=== PATIENT | female | born 1985 | race Caucasian/White ===

== ENCOUNTER 2022-11-15 19:37 | Outpatient (CLI) | payer MEDICAID, SELFPAY ==
[2022-11-15] VITALS (7 sets, daily range): BP systolic 113; BP diastolic 68; PULSE 59–68; TEMP 36.6; O2SAT 96–99; BMI 30.9
[2022-11-15 21:03] LABS: Bacteria 0 SEEN /hpf (None Seen); Mucous, Urine 0 SEEN /hpf (<or=2+)
[2022-11-15 21:04] LABS: Absolute Lymphocyte Count 2.19 X10^3/uL (0.83-4.51); Absolute Neutrophil Count 8.5 X10^3/uL (2.0-7.7); Basophil# 0.03 X10^3/uL; Basophil% 0.3 % (0-1); Eosinophil# 0.17 X10^3/uL; Eosinophils% 1.4 % (0-5); Hematocrit 34.6 % (37-47); Hemoglobin 11.9 g/dL (12.0-15.0); Lymphocyte # 2.19 X10^3/ul (0.83-4.51); Lymphocyte % 18.5 % (19-41); Mean Corp Hgb Conc 34.4 g/dL (32-36); Mean Corpuscular Hgb 30.4 pg (27.0-32.0); Mean Corpuscular Volume 88.3 fL (81-99); Monocyte# 0.74 X10^3/uL; Monocyte% 6.2 % (0-10); NRBC Flagged by Analyzer 0 % (0-5); Neutrophil # 8.51 X10^3/uL (2.7-7.7); Neutrophil % 71.7 % (47-70); Platelet Count 171 K/mm3 (150-450); RBC Distribution Width CV 13.2 % (11.6-14.6); RBC Distribution Width SD 42.5 fl (35.1-43.9); Red Blood Count 3.92 M/mm3 (4.2-5.4); White Blood Count 11.9 K/mm3 (4.4-11.0)
[2022-11-15 21:08] LABS: Color, Urine Straw (Yellow); Glucose, Dipstick Normal (Normal); Ketone-Dipstick Negative (Negative); Leukocyte Esterase-Dipstick 25 /ul (Negative); Nitrite-Dipstick Negative (Negative); Occult Blood-Urine Negative /ul (Negative); Protein-Dipstick Negative (Negative); Urine Bilirubin Dipstick Negative (Negative); Urine Clarity Clear (Clear); Urine Urobilinogen Normal (Normal)
[2022-11-15 21:37] LABS: Amphetamine Urine VISTA NEGATIVE (<1000 ng/mL); Barbiturate Urine VISTA NEGATIVE (< 200 ng/mL); Benzodiazepine Urine VISTA NEGATIVE (< 200 ng/mL); Cocaine Urine VISTA NEGATIVE (< 300 ng/mL); Ecstacy Urine VISTA NEGATIVE (< 500 ng/mL); Methadone Urine VISTA NEGATIVE (< 300 ng/mL); PCP Urine VISTA NEGATIVE (< 25 ng/mL); THC Urine VISTA NEGATIVE (< 50 ng/mL); Vista UDS pH Range 7
[2022-11-15 21:41] LABS: Red Blood Cells-Urine 0 SEEN /hpf (0-5); Squamous Epithelial Cells - UA 0-5 SEEN /hpf (5-10); White Blood Cells 0-5 SEEN /hpf (0-5)
[2022-11-15 21:53] LABS: Rubella IgG Reactive (Nonreactive); Syphilis Antibodies Non-reactive
--- NOTE | 2022-11-15 21:55 | OB.TRI.NOTE ---
HPI - General HPI Narrative ZAKIYA WHELAN, is a 37 F who presents with unwell feeling, intermittent numbness to right hand and right hip and left foot, currently not experiencing. [facility] test in April, but has not returned to any provider for OB care. DWIGHT per pt is 12/12/2021. has active movement, denies lof/ctx/vb. PFSH PFSH Allergy/AdvReac Type Severity Reaction Status Date / Time No Known Allergies Allergy Verified 11/15/22 22:35 OB Visit Details Medical History Medical History: Negative: Diabetes, Hypertension, Heart disease, Auto-immune disorder, Kidney disease/UTI, Neurologic/epilepsy, Psychiatric, Depression/ depression, Hepatitis/liver disease, Varicosities/phlebitis, Thyroid dysfunction, Trauma/domestic violence, History of blood transfusions, D (Rh) Sensitized, Pulmonary (e.g.,TB,Asthma), Seasonal allergies, Drug/latex allergies/reactions, Breast, Crayon Sawyer surgery, Operations/hospitalizations, Anesthetic complications, History of abnormal pap, Uterine anomaly/ana, Infertility, Anti-retroviral treatment, Relevant family history and Other ROS Review of Systems ROS Unobtainable: due to encephalopathy Constitutional Constitutional: Reports headache(s) Cardiovascular Cardiovascular: Reports systems reviewed and no addt'l complaints, except as documented Respiratory/Chest Respiratory/Chest: Reports systems reviewed and no addt'l complaints, except as documented Gastrointestinal Gastrointestinal: Reports systems reviewed and no addt'l complaints, except as documented Genitourinary Genitourinary: Reports systems reviewed and no addt'l complaints, except as documented Musculoskeletal Musculoskeletal: Reports systems reviewed and no addt'l complaints, except as documented Integumentary Integumentary: Reports systems reviewed and no addt'l complaints, except as documented Neurologic Neurologic: Reports systems reviewed and no addt'l complaints, except as documented, loss of vision and numbness Psychiatric Psychiatric: Reports systems reviewed and no addt'l complaints, except as documented Endocrine Endocrinology: Reports systems reviewed and no addt'l complaints, except as documented Hematologic/Lymphatic Hematologic/Lymphatic: Reports systems reviewed and no addt'l complaints, except as documented Allergic/Immunologic Allergic/Immunologic: Reports systems reviewed and no addt'l complaints, except as documented Physical Exam Const alert, oriented x3 and no apparent distress General Appearance: cooperative HEENT normocephalic Head and Scalp: normal to inspection Eyes PERRL General Eye: normal appearance of both eyes Visual Acuity: acuity normal Visual Field: No peripheral vision loss and No central vision loss Alignment: alignment normal Eyelid: eyelids normal Conjunctiva: conjunctiva normal Sclera: sclera normal Cornea: cornea normal Pupil: PERRL Neck full ROM Lymph Lymphatic: no lymphadenopathy noted Chest inspection of chest normal Resp normal respiratory effort, normal air movement, no retractions and no use of accessory muscles Effort and Inspection: able to speak in complete sentences Cardio regular rate GI normal to inspection, nondistended, normoactive bowel sounds GI Narrative: fundus appropriate for GA Manual OB Exam: estimated gestational size appropriate Uterus Palpation: Negative for uterus tender Psych Attitude: calm NST FHR Rate Baby A Baseline: 130-140 Variability:: Moderate Accelerations:: 15 x 15 Decelerations:: None NST Reactive:: Yes FHR Category:: Category I Assessment & Plan (1) : PLAN: Plan pt seen and evaluated by provider. in no active distress. reactive NST. intermittent numbness/visual white outs, currently without any symptoms.VSS and lab work reassuring -plan to d/c home and will establish care in community. -recommended once established care to obtain neuro consult if symptoms are not improved. Charges/Coding Visit Charges Office Visits / Consults: [id number] OP Consult L2 Procedures Urinary/Genital [id number]: [id number] non-stress test Interp
[2022-11-15 22:15] LABS: Chlamydia Trachomatis by PCR Negative (Negative); Neisserai gonorrhoeae by PCR Negative (Negative); Probe Check PASS; Sample Adequacy Control PASS; Specimen Processing Control PASS
[2022-11-15 22:24] LABS: HIV - WCH Non-Reactive (Nonreactive); Hepatitis B Surface Antigen Non-Reactive (Nonreactive); Hepatitis C Antibody Non-Reactive (Nonreactive)
[2022-11-15 23:03] LABS: Group B Strep DNA By PCR Negative (Negative); Internal Control PASS; Probe Check PASS; Specimen Processing Control PASS
== END 2022-11-15 23:31 | disposition home or self-care (01) ==
LOC: WPOUT 19:45 → WP 19:46
PROVIDERS: Visit Provider Registered Nurse
DX: O26.899 Other specified pregnancy related conditions, unspecified trimester (principal); R20.0 Anesthesia of skin; Z3A.00 Weeks of gestation of pregnancy not specified
CPT/HCPCS: 36415; 59025; 59050; 80307; 81001; 85025; 86703; 86762; 86780; 86803; 86850; 86900; 86901; 87081; 87340; 87491; 87591; 87653; 99218; G0378

== ENCOUNTER 2023-01-05 19:15 | Inpatient (IN) | payer MEDICAID, SELFPAY ==
[2023-01-05] VITALS (7 sets, daily range): BP systolic 111–124; BP diastolic 73–78; PULSE 60–81; TEMP 36.1–36.2; O2SAT 96–99; BMI 31.7
--- NOTE | 2023-01-05 19:27 | PCM.HP.OB ---
HPI - General General Date of Admission: 01/05/23 HPI Narrative ZAKIYA WHELAN, is a 37 F at 39.2 weeks gestation who presents for scheduled induction of labor for AMA and late/poor care. Patient seen only twice in office during . Maternal Data Information DWIGHT Calculator Estimated Delivery Date Method Current WG Current Estimate 01/10/23 Manual 39w 2d PFSH PFSH Home Medications + Iron 1 tab DAILY 01/05/23 [History Last Taken 01/04/23 10:00 1 tab] Allergy/AdvReac Type Severity Reaction Status Date / Time Latex, Natural Rubber Allergy Rash Verified 01/05/23 20:33 Surgical History (Updated 01/05/23 @ 20:32 by Christelle Truong) History of surgery Social History Smoking Status: Former smoker History Elective abortions Hx Para 0 Spontaneous abortions Hx # Term Pregnancies Ectopic pregnancies Hx # Pregnancies Multiple births # of living children NST FHR Rate Baby A Baseline: 135 Variability:: Moderate Accelerations:: 15 x 15 Decelerations:: None NST Reactive:: Yes FHR Category:: Category I Uterine Activity:: None per TOCO ROS Eyes Eyes: Denies blurry vision, change in vision or spots in vision ENT HEENT: Denies dizziness or headache(s) Cardiovascular Cardiovascular: Denies abdominal pain, chest pain or dyspnea Respiratory/Chest Respiratory/Chest: Denies cough, dyspnea, shortness of breath at rest or shortness of breath with exertion Gastrointestinal Gastrointestinal: Denies abdominal pain, diarrhea or vomiting Genitourinary Genitourinary: Denies change in urinary stream, difficulty urinating or dysuria Musculoskeletal Musculoskeletal: Reports none Integumentary Integumentary: Denies rash Neurologic Neurologic: Denies dizziness, headache(s), memory loss or weakness Psychiatric Psychiatric: Reports none Physical Exam Const alert, oriented x3 and no apparent distress General Appearance: cooperative Orientation / Consciousness: awake Exam Limitations: no limitations HEENT normocephalic Head and Scalp: normal to inspection Eyes General Eye: normal appearance of both eyes Neck full ROM and no lymphadenopathy Lymph Lymphatic: no lymphadenopathy noted Chest inspection of chest normal Resp normal respiratory effort, normal air movement and clear to auscultation bilaterally Effort and Inspection: able to speak in complete sentences and symmetric chest movement Cardio regular rate and regular rhythm GI normal to inspection, nondistended, normoactive bowel sounds Back/Spine normal ROM Extremity full ROM and no calf tenderness Skin no rashes or lesions noted General Skin Exam: no breakdown Neuro oriented x3 and CN's II-XII intact bilaterally Psych mental status grossly normal and thought process normal Labs Labs Labs: Blood Type A POSITIVE Antibody Screen NEGATIVE Hct 35.8 % (37-47) L Hgb 11.9 g/dL (12.0-15.0) L Syphilis Total Ab Non-reactive Rubella IgG Antibody Reactive (Nonreactive) Hep Bs Antigen Non-Reactive (Nonreactive) HIV 1&2 Antibody Non-Reactive (Nonreactive) Group B Strep DNA Negative (Negative) Assessment & Plan (1) 39 weeks gestation of : (2) Encounter for induction of labor: (3) AMA (advanced maternal age) primigravida 35+: (4) Late care affecting : PLAN: Plan Admit to labor and delivery Routine labs Start IV and SL at this time Rapid GBS collected and sent CE- /-3 Plummer bulb placed without difficulty and filled with 30 cc of NS AROM for clear fluid with placement of plummer bulb Dr. Hilliard notified of admission and is collaborating physician
[2023-01-05] MEDS: Lactated Ringers 1,000 ML 50 ML IV (19:50)
[2023-01-05 20:55] LABS: Absolute Neutrophil Count 6.7 X10^3/uL (2.0-7.7); Basophil# 0.04 X10^3/uL; Basophil% 0.4 % (0-1); Eosinophil# 0.18 X10^3/uL; Eosinophils% 1.8 % (0-5); Hematocrit 35.8 % (37-47); Hemoglobin 11.9 g/dL (12.0-15.0); Lymphocyte % 23.6 % (19-41); Mean Corp Hgb Conc 33.2 g/dL (32-36); Mean Corpuscular Hgb 29.3 pg (27.0-32.0); Mean Corpuscular Volume 88.2 fL (81-99); Mean Platelet Vol. 11.3 fl (6.2-12.0); Monocyte# 0.79 X10^3/uL; Monocyte% 7.8 % (0-10); NRBC Flagged by Analyzer 0 % (0-5); Neutrophil # 6.66 X10^3/uL (2.7-7.7); Neutrophil % 65.4 % (47-70); Platelet Count 160 K/mm3 (150-450); RBC Distribution Width CV 13.3 % (11.6-14.6); RBC Distribution Width SD 43.1 fl (35.1-43.9); Red Blood Count 4.06 M/mm3 (4.2-5.4); White Blood Count 10.2 K/mm3 (4.4-11.0)
[2023-01-05] MEDS: 0.9% Normal Saline Single 100 ML IV.SOLN. INTRA-UTER (21:20)
[2023-01-06] VITALS (75 sets, daily range): BP systolic 92–128; BP diastolic 51–84; PULSE 65–202; RESP 16–18; TEMP 36–36.8; O2SAT 82–100
[2023-01-06 00:18] LABS: Group B Strep DNA By PCR Negative (Negative); Internal Control PASS; Probe Check PASS; Specimen Processing Control PASS
[2023-01-06 01:09] LABS: Amphetamine Urine VISTA NEGATIVE (<1000 ng/mL); Barbiturate Urine VISTA NEGATIVE (< 200 ng/mL); Benzodiazepine Urine VISTA NEGATIVE (< 200 ng/mL); Cocaine Urine VISTA NEGATIVE (< 300 ng/mL); Ecstacy Urine VISTA NEGATIVE (< 500 ng/mL); Methadone Urine VISTA NEGATIVE (< 300 ng/mL); PCP Urine VISTA NEGATIVE (< 25 ng/mL); THC Urine VISTA NEGATIVE (< 50 ng/mL); Vista UDS pH Range 7
[2023-01-06] MEDS: Oxytocin 15 Units/NS 250ml 15 UNITS/250 ML IV.SOLN 2 UNITS IV (02:44)
[2023-01-06] MEDS: LACTATED RINGERS 500 ML 999 ML IV (04:16)
[2023-01-06] MEDS: fentaNYL-bupivacaine (epidural) 100 ML BAG EPIDURAL ×2 (05:13→09:58)
[2023-01-06] MEDS: Mag Hydrox/Al Hydrox/Simeth 30 ML UDC PO ×2 (06:06→12:18)
--- NOTE | 2023-01-06 08:10 | PCM.PN.OB ---
Subjective Subjective Patient seen at bedside. Comfortable with epidural. Objective Data Objective Data Vital Signs: Vital Signs Temp Pulse BP Pulse Ox 97.2 F L 81 100/59 L 98 01/06/23 07:54 01/06/23 07:55 01/06/23 07:55 01/06/23 07:55 Weight: 208 lb 15.971 oz Body Mass Index (BMI) 31.7 Intake & Output: Intake and Output for Last 24 Hours 01/04/23 01/05/23 02 23:59 23:59 23:59 Intake Total 84.17 / 84.17 639.31 / 639.31 Balance 84.17 / 84.17 639.31 / 639.31 Lab / Micro Data Result Diagrams: 01/05/23 19:50 Labs: Laboratory Results - last 24 hr 01/05/23 19:50: WBC 10.2, RBC 4.06 L, Hgb 11.9 L, Hct 35.8 L, MCV 88.2, MCH 29.3, MCHC 33.2, RDW Std Deviation 43.1, RDW Coeff of Mayra 13.3, Plt Count 160, MPV 11.3, Immature Gran % (Auto) 1.000 H, Neut % (Auto) 65.4, Lymph % (Auto) 23.6, Benton % (Auto) 7.8, Eos % (Auto) 1.8, Baso % (Auto) 0.4, Absolute Neuts (auto) 6.7, Absolute Lymphs (auto) 2.40, Nucleated RBC % 0 01/05/23 19:50: Blood Type A POSITIVE, Antibody Screen NEGATIVE 01/05/23 20:20: Group B Strep DNA Negative, Specimen Comment ABALONE SHELLER 01/06/23 00:26: Urine Opiates Screen NEGATIVE, Urine Methadone Screen NEGATIVE, Ur Barbiturates Screen NEGATIVE, Ur Phencyclidine Scrn NEGATIVE, Ur Amphetamines Screen NEGATIVE, MDMA (Ecstasy) Screen NEGATIVE, U Benzodiazepines Scrn NEGATIVE, Urine Cocaine Screen NEGATIVE, U Cannabinoids Screen NEGATIVE, Ur Drug Screen Comment ROS Eyes Eyes: Denies blurry vision, change in vision or spots in vision ENT HEENT: Denies dizziness or headache(s) Cardiovascular Cardiovascular: Denies abdominal pain, chest pain or dyspnea Respiratory/Chest Respiratory/Chest: Denies cough, dyspnea, shortness of breath at rest or shortness of breath with exertion Gastrointestinal Gastrointestinal: Denies abdominal pain, diarrhea or vomiting Genitourinary Genitourinary: Denies change in urinary stream, difficulty urinating or dysuria Musculoskeletal Musculoskeletal: Reports none Integumentary Integumentary: Denies rash Neurologic Neurologic: Denies dizziness, headache(s), memory loss or weakness Psychiatric Psychiatric: Reports none Physical Exam Const alert, oriented x3 and no apparent distress General Appearance: cooperative Orientation / Consciousness: awake Exam Limitations: no limitations HEENT normocephalic Head and Scalp: normal to inspection Eyes General Eye: normal appearance of both eyes Neck full ROM and no lymphadenopathy Lymph Lymphatic: no lymphadenopathy noted Chest inspection of chest normal Resp normal respiratory effort, normal air movement and clear to auscultation bilaterally Effort and Inspection: able to speak in complete sentences and symmetric chest movement Cardio regular rate and regular rhythm GI normal to inspection, nondistended, normoactive bowel sounds Amniotic Fluid: clear amniotic fluid Back/Spine normal ROM Extremity full ROM and no calf tenderness Skin no rashes or lesions noted General Skin Exam: no breakdown Neuro oriented x3 and CN's II-XII intact bilaterally Psych mental status grossly normal and thought process normal Assessment & Plan (1) 39 weeks gestation of : (2) Encounter for induction of labor: (3) AMA (advanced maternal age) primigravida 35+: (4) Late care affecting : PLAN: Plan Category 1 tracing- NST reactive CE- 4.5/65/-2 Coates bulb out Pitocin IV- continue to increase per protocol Afebrile Continue present plan of care Anticipate
[2023-01-06] MEDS: Lactated Ringers 1,000 ML 200 ML IV (08:20)
[2023-01-06] MEDS: Ondansetron 4 MG/2 ML Vial IV (09:18)
[2023-01-06] MEDS: 0.9% Saline Lock 10 ML Syringe IV (10:03)
[2023-01-06] MEDS: Amnioinfusion- 0.9% NS 1,000 ML IV.SOLN. 100 ML INTRA-UTER (10:36)
--- NOTE | 2023-01-06 10:40 | PCM.PN.BLA ---
Progress Note Amnioinfusion started for deep variables despite position changes. FHT's recover and remains moderate variability. Dr. Bro notified.
--- NOTE | 2023-01-06 12:38 | PCM.PN.BLA ---
Progress Note Called to patient's room for continued variable decelerations with pushing. FHT recovers in between contractions. Patient pushing well with contractions and brings head down to +[address] Bro called to unit for evaluation for possible vacuum application. Assessment & Plan Assessment/Plan (1) Variable deceleration:
[2023-01-06] MEDS: Oxytocin 15 Units/NS 250ml 15 UNITS/250 ML IV.SOLN 83 UNITS IV (12:53)
--- NOTE | 2023-01-06 13:30 | EX.PCM.OBRPT ---
Maternal Data Information DWIGHT Calculator Estimated Delivery Date Method Current WG Current Estimate 01/10/23 Manual 39w 3d Vaginal Delivery Maternal Presentation Maternal Presentation: Medically Indicated Induction Type of Induction: Pitocin, Coates Bulb and Amniotomy Operative Information Date of Procedure: 01/06/23 Pre-Operative Diagnosis: (1) Advanced maternal age (2) Insufficient care Post-Operative Diagnosis: Same Surgery / Procedure Performed: Vacuum Assisted Vaginal Delivery master certified rv technician #1: Rona Neal Type of Anesthesia: Epidural Estimated Blood Loss: 400ml Findings Description of Procedure: Patient prepped & draped when C/C/+2. Patient was having deep variable decelerations while pushing so decision made to use vacuum. head position confirmed. Vacuum placed on head and position confirmed. With contraction & gentle pull of vacuum good descent obtained. Vacuum pressure released. Then with next contraction vacuum position again confirmed on head and with gentle pull and maternal contraction the head delivered. Vacuum released. head gently guided to allow delivery of anterior and posterior shoulders. No excess traction placed on head. Body delivered and 3VC clamped & cut in delayed fashion. Placenta delivered with gentle traction and good uterine tone obtained. Presentation: ABDULKADIR Amniotic Membrane Rupture Type: Artificial Amniotic Fluid Description: Clear Placental Delivery Description: Expressed Placenta Disposition: [facility] Specimen(s) Removed: Placenta Cord Vessel Description: 3 Vessels Cord Entanglement: None Cord Gases: ABG and VBG Infant A Gender: Female (Elaine) (1 minute): 8 (5 minute): 9 Delayed Cord Clamping: Yes Post Vaginal Delivery Medications Given After Delivery: IV Pitocin Episiotomy Description: None Laceration: 1st degree (bilateral vaginal & labial - repaired with 3-0 vicryl) Complication Complications: None
[2023-01-06] MEDS: Benzocaine/Lanolin/Aloe Vera 1 SPRAY EACH TOPICAL (23:40)
[2023-01-07] VITALS (10 sets, daily range): BP systolic 104–150; BP diastolic 53–65; PULSE 66–82; RESP 16–17; TEMP 36.2–36.4; O2SAT 96–98
--- NOTE | 2023-01-07 07:24 | PCM.PN.OB ---
Subjective Subjective Patient seen at bedside. . Denies any headache, vision changes, SOB or CP. Lochia decreasing. Ambulating and voiding without difficulty. Desires discharge home today. Objective Data Objective Data Vital Signs: Vital Signs Temp Pulse Resp BP Pulse Ox 97.5 F L 82 17 115/56 L 97 01/07/23 03:50 01/07/23 03:55 01/07/23 03:50 01/07/23 03:55 01/06/23 18:29 Weight: 208 lb 15.971 oz Body Mass Index (BMI) 31.7 Intake & Output: Intake and Output for Last 24 Hours 01/05/23 01/06/23 01/07/23 23:59 23:59 23:59 Intake Total 84.17 / 84.17 2328.50 / 2328.50 Output Total 1150 / 1150 Balance 84.17 / 84.17 1178.50 / 1178.50 Lab / Micro Data Result Diagrams: 01/05/23 19:50 ROS Eyes Eyes: Denies blurry vision, change in vision or spots in vision ENT HEENT: Denies dizziness or headache(s) Cardiovascular Cardiovascular: Denies abdominal pain, chest pain or dyspnea Respiratory/Chest Respiratory/Chest: Denies cough, dyspnea, shortness of breath at rest or shortness of breath with exertion Gastrointestinal Gastrointestinal: Denies abdominal pain, diarrhea or vomiting Genitourinary Genitourinary: Denies change in urinary stream, difficulty urinating or dysuria Musculoskeletal Musculoskeletal: Reports none Integumentary Integumentary: Denies rash Neurologic Neurologic: Denies dizziness, headache(s), memory loss or weakness Physical Exam Const alert and no apparent distress General Appearance: cooperative and comfortable Exam Limitations: no limitations HEENT normocephalic Eyes General Eye: normal appearance of both eyes Neck full ROM General: normal visual inspection Chest Chest: symmetrical chest wall rise Resp normal respiratory effort and normal air movement Effort and Inspection: symmetric chest movement Auscultation: clear to auscultation bilaterally Cardio regular rate and regular rhythm GI normal to inspection, nondistended, normoactive bowel sounds Back/Spine normal ROM Extremity full ROM and no calf tenderness General Extremity: normal exam except as noted Skin no rashes or lesions noted Neuro CN's II-XII intact bilaterally Psych mental status grossly normal Assessment & Plan (1) Vaginal laceration: (2) Labial abrasion, delivered, current hospitalization: (3) (spontaneous vaginal delivery): PLAN: Plan PPD 1 Routine care support D/C home with follow up in office
--- NOTE | 2023-01-07 07:30 | DCINST_ITS ---
Discharge Instructions Diet Discharge Diet: No restrictions Activity Discharge Activity: Return to Normal Activity, May Shower and May Take a Tub Bath May resume sexual activity in: 4-6 weeks Weight Bearing Status: Weight bearing as tolerated Dressing / Incision Call your doctor if you observe: Inability to urinate, Using more than 1 pad per hour, Shortness of breath, Dizziness, Swelling in the ankles, Chest pain, Calf discomfort and Uncontrolled pain Follow Up Care Please Follow Up With: Rona Neal CNM When: Within 14 days Test Results: Test results from this visit will be discussed in further detail at your follow- up appointment, if applicable. Discharge Plan Admission Admit Date/Time: 01/05/23 19:15 Primary Reason for Your Visit: Labor and Delivery Attending Provider: Zulma Bro Primary Care Provider: Care Physician,Prisca Primary Discharge Orders/Prescriptions Prescriptions: No Action + Iron 1 tab 1 tab DAILY Referrals / Follow Up: Care Physician,No Primary [Primary Care Provider] - Disposition Disposition (needs filled in before D/C Order can be placed): Home, Self Care
--- NOTE | 2023-01-07 11:11 | NURSING ---
Tammie Neal verbalized that the pt is appropriate to be discharged without social work seeing her for late care.
[2023-01-08 02:00] VITALS: BP 108/55; PULSE 69; RESP 16; TEMP 37.1
--- NOTE | 2023-01-08 07:17 | DCINST_ITS ---
Discharge Instructions Diet Discharge Diet: No restrictions Activity Discharge Activity: Return to Normal Activity, May Shower and May Take a Tub Bath May resume sexual activity in: 6-8 weeks Weight Bearing Status: Weight bearing as tolerated Dressing / Incision Call your doctor if you observe: Inability to urinate, Using more than 1 pad per hour, Shortness of breath, Dizziness, Swelling in the ankles, Chest pain, Calf discomfort and Uncontrolled pain Follow Up Care Please Follow Up With: Rona Neal CNM When: Within 10 days Test Results: Test results from this visit will be discussed in further detail at your follow- up appointment, if applicable. Discharge Plan Admission Admit Date/Time: 01/05/23 19:15 Primary Reason for Your Visit: Labor and Delivery Attending Provider: Zulma Bro Primary Care Provider: Care Physician,Prisca Primary Discharge Orders/Prescriptions Prescriptions: No Action + Iron 1 tab 1 tab DAILY Referrals / Follow Up: Care Physician,No Primary [Primary Care Provider] - Disposition Disposition (needs filled in before D/C Order can be placed): Home, Self Care
[2023-01-08 08:49] VITALS: BP 119/73; PULSE 70; RESP 16; TEMP 36.3; O2SAT 98
[2023-01-08 08:51] VITALS: BP 119/73; PULSE 63; PULSE 71; O2SAT 98
--- NOTE | 2023-01-08 11:30 | CASEMGMT ---
Social Work Brief Assessment Labor and Delivery Unit Patient Address: [address] [place] [address] , [place] [address] Phone number: [phone] Date of Referral/Notification: 01/06/2023 Time of Referral: 1941 Referred By: Dr. Bro Date of Intervention: 01/08/2023 Time of Intervention: 1130 Reason for Referral: Limited care Informant: Medical record and mother of baby (MOB) Beatriz Florence; father of baby (FOB) Naman Decker present. History: SHANNON is a 37-year-old single female, involved with the father of baby for the last 4 years. No indication of safety or domestic violence noted during assessment admission denied any type of domestic violence issues or safety concerns. 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 FOB has 2 children from a prior relationship ages 16 and 12 who comes over regularly, with a 12-year-old mostly staying in their home. is the first child for SHANNON and is to be named Elaine Decker (01/06/2023). care was extremely limited at 2 visits. MOB reports she was aware of , but wanted to do things as naturally as she could. MOB reports she was aware that this could be frowned upon by medical providers. FOB expressed that he is the person in the relationship that was encouraging MOB to seek medical help. MOB reports that she is a person who is willing to seek help when needed. MOB denies any history of any type of depression or anxiety and describes self is a pretty happy person overall. SHANNON has had some grief issues in the past [place] regarding of a family member and this would be the only instance of depression she is ever experienced. MOB denies any type of substance use issues. Infant's urine drug screen upon at delivery was negative. Assessment: Met with MOB and FOB in room, introducing to self and social work role. MOB expressed wanting to speak with this music writer prior to discharge, as wanted to do the right thing. MOB reports awareness that it tried to leave without speaking to this music writer this could be frowned upon interviewed as mother of baby was trying to hide something. MOB [id number] in conversation about reasoning behind not seeking care sooner. Reports however plan to take infant to follow-up and has no concerns or issues with this. MOB reports to be extremely happy to have a baby and to be a mother. Reports to have all necessary supplies. Denies any concerns with transportation or housing. Reports to have adequate support from the FOB, MOB's mother, and and a sister and MOB's [id number]. MOB reports she is active with job and family for food and medical and has WIC. Accepted information on help me grow and nurse visit from [facility] though declined actual referrals. Educated MOB and FOB to mood and anxiety disorders, risk factors and importance of seeking out help and support if needed. MOB expressed understanding and accept written material on this. Resources provided for [facility] as well. No voiced concerns by nursing staff regarding parent-child interactions or bonding. Plan: MOB and discharging home with support from the FOB who will be at home for a time to help with transition. Community resource information provided. MOB expresses intent to take to follow-up. No further needs requested or indicated. -ARCELIA Pruitt, KENZIE *This note was generated with [employer]ging [employer] software. It may contain incorrect words, spelling, and punctuation that were not noted in review of the chart prior to signing*
== END 2023-01-08 12:20 | disposition home or self-care (01) | DRG 560 ==
PROVIDERS: Advanced Practice Midwife; Obstetrics & Gynecology; Admitting Provider Obstetrics & Gynecology; Visit Provider Obstetrics & Gynecology
DX: O76 Abnormality in fetal heart rate and rhythm complicating labor and delivery (principal); Z37.0 Single live birth; O70.0 First degree perineal laceration during delivery; Z3A.39 39 weeks gestation of pregnancy; Z87.891 Personal history of nicotine dependence
CPT/HCPCS: 59025; 59050; 80307; 85025; 86850; 86900; 86901; 87653; 99221; J7030; J7120; A4216; G0378; J2405

== ENCOUNTER 2025-01-25 21:35 | Outpatient (CLI) | payer MEDICAID, SELFPAY ==
[2025-01-25 21:48] VITALS: BMI 32.2
[2025-01-25 21:59] VITALS: BP 133/85; PULSE 82; RESP 14; TEMP 36.4
[2025-01-25 22:00] VITALS: PULSE 85; O2SAT 96
[2025-01-25 23:17] LABS: ROM Internal Control Test YES-OK TO RESULT pt. (Internal QC)
[2025-01-25 23:18] LABS: ROM Patient Test Negative (Negative); Record Kit Lot#, ROM+ K2871
[2025-01-26 00:08] LABS: ROM Internal Control Test YES-OK TO RESULT pt. (Internal QC); ROM Patient Test Negative (Negative); Record Kit Lot#, ROM+ K2871
--- NOTE | 2025-01-28 08:48 | OB.TRI.NOTE ---
HPI - General General Date of Service: 01/25/25 HPI Narrative ZAKIYA WHELAN, is a 39 F @ 35 weeks who presents c/o [facility] Medical History (Updated 01/28/25 @ 08:[address] Ally Tran MD) Vaginal laceration Labial abrasion, delivered, current hospitalization (spontaneous vaginal delivery) Late care affecting AMA (advanced maternal age) primigravida 35+ Home Medications ?Medication ?Instructions ?Recorded ?Last Taken ?Type + Iron 1 tab DAILY 01/05/23 01/04/23 10:00 History 1 tab aspirin 81 mg capsule 81 mg PO DAILY 01/25/25 01/24/25 History docusate sodium 100 mg capsule 100 mg PO DAILY 01/25/25 01/24/25 History (Colace) omeprazole 10 mg capsule,delayed 10 mg PO DAILY 01/25/25 01/24/25 History release vit no.95-ferrous 1 tab PO DAILY pregnanc 01/25/25 01/24/25 History fumarate 28 mg-folic acid 800 mcg tablet () Allergy/AdvReac Type Severity Reaction Status Date / Time latex Allergy Intermediate Hives Verified 01/26/25 07:17 Latex, Natural Rubber Allergy Rash Verified 01/26/25 07:17 Surgical History (System 01/26/25 @ 07:17 by Sonya Ferrell) History of surgery Social History (System 01/26/25 @ 07:17 by Soyna Ferrell) Smoking Status: Former smoker History Elective abortions Hx Para 0 Spontaneous abortions Hx # Term Pregnancies Ectopic pregnancies Hx # Pregnancies Multiple births # of living children NST FHR Rate Baby A Baseline: 140 Variability:: Moderate Accelerations:: 15 x 15 NST Reactive:: Yes FHR Category:: Category I Uterine Activity:: no ctx Assessment & Plan (1) 35 weeks gestation of : (2) False labor before 37 completed weeks of gestation: (3) AMA (advanced maternal age) multigravida 35+: PLAN: Plan @ 35 weeks, false labor, membranes intact 1) membranes intact, dc home 2) well being established
== END 2025-01-26 00:20 | disposition home or self-care (01) ==
LOC: WPOUT 21:38 → WP 21:39
PROVIDERS: Visit Provider Obstetrics & Gynecology
DX: O47.03 False labor before 37 completed weeks of gestation, third trimester (principal); Z3A.35 35 weeks gestation of pregnancy; Z79.82 Long term (current) use of aspirin; Z79.899 Other long term (current) drug therapy; Z87.891 Personal history of nicotine dependence; O09.523 Supervision of elderly multigravida, third trimester
CPT/HCPCS: 59025; 59050; 84112; 99221; G0378

== ENCOUNTER 2025-02-22 00:47 | Inpatient (IN) | payer MEDICAID, SELFPAY ==
[2025-02-22] VITALS (38 sets, daily range): BP systolic 114–139; BP diastolic 55–87; PULSE 63–82; RESP 16; TEMP 36.2–36.7; O2SAT 91–100; BMI 33.3
--- NOTE | 2025-02-22 00:47 | PCM.HP.OB ---
HPI - General HPI Narrative ZAKIYA WHELAN, is a 39 F who presents with contractions. Maternal Data Information DWIGHT Calculator Estimated Delivery Date Method Current WG Current Estimate 02/26/25 Manual 39w 3d PFSH PFS Medical History (Updated 02/22/25 @ 00:54 by Rona Neal CNM) Vaginal laceration Labial abrasion, delivered, current hospitalization (spontaneous vaginal delivery) Late care affecting AMA (advanced maternal age) primigravida 35+ Home Medications ?Medication ?Instructions ?Recorded ?Last Taken ?Type + Iron 1 tab DAILY 01/05/23 01/04/23 10:00 History 1 tab aspirin 81 mg capsule 81 mg PO DAILY 01/25/25 02/21/25 History docusate sodium 100 mg capsule 100 mg PO DAILY 01/25/25 01/24/25 History (Colace) omeprazole 10 mg capsule,delayed 10 mg PO DAILY 01/25/25 02/21/25 History release vit no.95-ferrous 1 tab PO DAILY pregnanc 01/25/25 02/21/25 History fumarate 28 mg-folic acid 800 mcg tablet () Allergy/AdvReac Type Severity Reaction Status Date / Time latex Allergy Intermediate Hives Verified 02/22/25 00:48 Latex, Natural Rubber Allergy Rash Verified 01/26/25 07:17 Surgical History (Updated 02/22/25 @ 00:58 by Diana Taylor) History of surgery History of surgery Social History (System 01/26/25 @ 07:17 by Sonya Ferrell) Smoking Status: Former smoker History Elective abortions Hx Para 0 Spontaneous abortions Hx # Term Pregnancies Ectopic pregnancies Hx # Pregnancies Multiple births # of living children ROS Eyes Eyes: Denies blurry vision, change in vision or spots in vision ENT HEENT: Denies dizziness or headache(s) Cardiovascular Cardiovascular: Denies abdominal pain, chest pain or dyspnea Respiratory/Chest Respiratory/Chest: Denies cough, dyspnea, shortness of breath at rest or shortness of breath with exertion Gastrointestinal Gastrointestinal: Denies abdominal pain, diarrhea or vomiting Genitourinary Genitourinary: Denies change in urinary stream, difficulty urinating or dysuria Musculoskeletal Musculoskeletal: Reports none Integumentary Integumentary: Denies rash Neurologic Neurologic: Denies dizziness, headache(s), memory loss or weakness Psychiatric Psychiatric: Reports none Physical Exam Const alert, oriented x3 and no apparent distress General Appearance: cooperative Orientation / Consciousness: awake Exam Limitations: no limitations HEENT normocephalic Head and Scalp: normal to inspection Eyes General Eye: normal appearance of both eyes Neck full ROM and no lymphadenopathy Lymph Lymphatic: no lymphadenopathy noted Chest inspection of chest normal Resp normal respiratory effort, normal air movement and clear to auscultation bilaterally Effort and Inspection: able to speak in complete sentences and symmetric chest movement Cardio regular rate and regular rhythm GI normal to inspection, nondistended, normoactive bowel sounds Manual OB Exam: presentation cephalic Back/Spine normal ROM Extremity full ROM and no calf tenderness Skin no rashes or lesions noted General Skin Exam: no breakdown Neuro oriented x3 and CN's II-XII intact bilaterally Psych mental status grossly normal and thought process normal Labs Labs Labs: Blood Type A POSITIVE Antibody Screen NEGATIVE Hct 35.8 % (37-47) L Hgb 11.9 g/dL (12.0-15.0) L Syphilis Total Ab Non-reactive Rubella IgG Antibody Reactive (Nonreactive) Hep Bs Antigen Non-Reactive (Nonreactive) Hepatitis C Antibody Non-Reactive (Nonreactive) HIV 1&2 Antibody Non-Reactive (Nonreactive) Group B Strep DNA Negative (Negative) Rhogam given: No Assessment & Plan (1) AMA (advanced maternal age) multigravida 35+: (2) Spontaneous onset of labor: (3) 39 weeks gestation of : (4) Gestational thrombocytopenia: (5) History of vacuum extraction assisted delivery: PLAN: Plan CE 5-/-1 Admit to labor and delivery Routine orders GBS negative Start IV and give fluid bolus Epidural when indicated Dr. Manley aware of admission and is currently on unit
[2025-02-22] MEDS: Lactated Ringers 1,000 ML 999 ML IV (00:55)
[2025-02-22 01:07] LABS: Absolute Lymphocyte Count 2.33 X10^3/uL (0.83-4.51); Absolute Neutrophil Count 7.7 X10^3/uL (2.0-7.7); Basophil# 0.04 X10^3/uL; Basophil% 0.4 % (0-1); Eosinophil# 0.15 X10^3/uL; Eosinophils% 1.4 % (0-5); Hematocrit 37.3 % (37-47); Hemoglobin 12.6 g/dL (12.0-15.0); Lymphocyte # 2.33 X10^3/ul (0.83-4.51); Lymphocyte % 21.1 % (19-41); Mean Corp Hgb Conc 33.8 g/dL (32-36); Mean Corpuscular Hgb 29.6 pg (27.0-32.0); Mean Corpuscular Volume 87.6 fL (81-99); Mean Platelet Vol. 10.5 fl (6.2-12.0); Monocyte# 0.73 X10^3/uL; Monocyte% 6.6 % (0-10); NRBC Flagged by Analyzer 0 % (0-5); Neutrophil # 7.65 X10^3/uL (2.7-7.7); Neutrophil % 69.3 % (47-70); Platelet Count 136 K/mm3 (150-450); RBC Distribution Width CV 14.2 % (11.6-14.6); RBC Distribution Width SD 44.6 fl (35.1-43.9); Red Blood Count 4.26 M/mm3 (4.2-5.4)
[2025-02-22 01:48] LABS: Syphilis Antibodies Nonreactive (Nonreactive)
[2025-02-22] MEDS: Oxytocin 15 Units/NS 250ml 15 UNITS/250 ML IV.SOLN 83 UNITS IV (02:07)
[2025-02-22] MEDS: Oxytocin 10 UNITS/ML Vial IM (02:09)
--- NOTE | 2025-02-22 02:23 | OB.VAGDELI_ITS ---
Assessment & Plan (1) Precipitous delivery: (2) Laceration, obstetrical, first degree: (3) Gestational thrombocytopenia: Maternal Data Information DWIGHT Calculator Estimated Delivery Date Method Current WG Current Estimate 02/26/25 Manual 39w 3d Vaginal Delivery Maternal Presentation Maternal Presentation: Active Labor Vaginal Delivery Information Procedure Performed: Spontaneous Vaginal Delivery (precipitous ) Surgeon/Practitioner: Rona Neal Pre-Procedure Diagnosis: Term gestation, spontaneous onset of labor Post-Procedure Diagnosis: , Live male Type of anesthesia: None Estimated Blood Loss: 200 Time of Delivery: 02:05 Findings Description of procedure: Patient arrived to unit and quickly progressed to complete dilation. She began bearing down with contractions. AROM bulging bag of fluid and with good maternal effort, head delivered followed by anterior shoulder and remainder of in lissette body without any force, delay, or traction. Vigorous male was delivered atraumatically and placed on maternal abdomen. Pitocin IV started for active management of the third stage of labor. 3 vessel cord clamped and cut after delay and placed immediately skin to skin with patient. Placenta delivered spontaneously and intact. A small laceration was repaired with 2 small sutures in usual fashion using 3-0 Vicryl on SH. Hemostasis obtained. Vaginal sweep performed. Fundus is firm 2 below U and bleeding is hemostatic. Sponge and sharps counts correct. Patient and infant bonding well at this time. Dr. Manley notified of delivery. Routine post orders placed. Presentation: Vertex Amniotic Membrane Rupture Type: Artificial Amniotic Fluid Description: Clear Placental Delivery Description: Spontaneous Placenta Disposition: [facility] Specimen collected: No Cord Vessel Description: 3 Vessels Cord Entanglement: None Nuchal Cord Compression: Without compression Infant A Gender: Male (1 minute): 8 (5 minute): 9 Delayed Cord Clamping: Yes Certified [employer] data management specialist: No Post Vaginal Deli Medications given after delivery: IV Pitocin and IM Pitocin Episiotomy Description: None Laceration: 1st degree Complication Complications: No
[2025-02-22] MEDS: Naproxen 500 MG Tablet PO ×2 (12:28→23:16)
[2025-02-22] MEDS: SimETHICONE 80 MG Chewable Tablet PO (12:28)
[2025-02-22] MEDS: Benzocaine/Lanolin/Aloe Vera 85 GM Spray 1 SPRAY TOPICAL (16:13)
[2025-02-23 03:40] VITALS: BP 131/89; PULSE 82; RESP 16; TEMP 36.4; O2SAT 98
[2025-02-23] MEDS: Acetaminophen 500 MG Tablet 1000 MG PO (05:44)
[2025-02-23 05:51] LABS: Absolute Lymphocyte Count 3.33 X10^3/uL (0.83-4.51); Absolute Neutrophil Count 5.4 X10^3/uL (2.0-7.7); Basophil# 0.06 X10^3/uL; Basophil% 0.6 % (0-1); Eosinophils% 3.1 % (0-5); Hemoglobin 11.6 g/dL (12.0-15.0); Lymphocyte # 3.33 X10^3/ul (0.83-4.51); Lymphocyte % 33.9 % (19-41); Mean Corp Hgb Conc 34.1 g/dL (32-36); Mean Corpuscular Hgb 30.4 pg (27.0-32.0); Mean Platelet Vol. 10.6 fl (6.2-12.0); Monocyte# 0.59 X10^3/uL; NRBC Flagged by Analyzer 0 % (0-5); Neutrophil # 5.42 X10^3/uL (2.7-7.7); Neutrophil % 55.3 % (47-70); Platelet Count 138 K/mm3 (150-450); RBC Distribution Width CV 14.6 % (11.6-14.6); RBC Distribution Width SD 46.5 fl (35.1-43.9); Red Blood Count 3.82 M/mm3 (4.2-5.4); White Blood Count 9.8 K/mm3 (4.4-11.0)
--- NOTE | 2025-02-23 07:21 | PCM.DC.SUM ---
Providers Date of Admission: 02/22/25 Primary Care Physician: Prisca Primary Care Phys Reason For Visit: VAGINAL DELIVERY Diagnosis Discharge Diagnosis (1) Precipitous delivery: Status: Acute Code(s): O62.3 - Precipitate labor (2) Laceration, obstetrical, first degree: Status: Acute Code(s): O70.0 - First degree perineal laceration during delivery (3) Gestational thrombocytopenia: Status: Acute Code(s): O99.119 - Other diseases of the blood and blood-forming organs and certain disorders involving the immune mechanism complicating , unspecified trimester; D69.6 - Thrombocytopenia, unspecified Plan PPD 2 support D/C home with follow up in office Medications at Discharge Home Medications + Iron 1 tab DAILY 01/05/23 docusate sodium 100 mg capsule (Colace) 100 mg PO DAILY 01/25/25 omeprazole 10 mg capsule,delayed release 10 mg PO DAILY 01/25/25 vit no.95-ferrous fumarate 28 mg-folic acid 800 mcg tablet () 1 tab PO DAILY pregnanc 01/25/25 acetaminophen 500 mg tablet 1,000 mg (2 x 500 mg) PO Q6H PRN PRN Pain 1-10 Or Fever #0 tabs 02/23/25 naproxen 500 mg tablet 500 mg PO Q8H PRN PRN Pain Score 1-10 #0 tabs 02/23/25 Hospital Course Operations None Procedures None Summary of Care Provided Minutes Spent on Discharge: 15 Hospital Course: Patient had vaginal delivery. Hospital course was uneventful. Physical Exam Narrative Patient seen at bedside. Denies pain. Ambulating and voiding without difficulty. Lochia decreased. Desires discharge home today. Const alert and oriented x3 General Appearance: Negative for in distress HEENT normocephalic Eyes General Eye: normal appearance of both eyes Neck General: normal visual inspection Chest Chest: symmetrical chest wall rise Resp normal respiratory effort and normal air movement Effort and Inspection: symmetric chest movement; Negative for tachypneic Auscultation: clear to auscultation bilaterally Cardio regular rate and regular rhythm Peripheral Pulses: pulses 2+ throughout GI normal to inspection, nondistended, normoactive bowel sounds Narrative: Ice to perineum OB / External & Speculum: vaginal bleeding and other Lochia decreasing Uterus Palpation: uterus fundus firm (Below U) Extremity normal to inspection, full ROM and normal capillary refill Skin no rashes or lesions noted Neuro oriented x3, CN's II-XII intact bilaterally and gait normal Psych mental status grossly normal, thought process normal and activity/motor behavior normal Weight / BMI Weight Weight: 219 lb 9.6 oz Body Mass Index (BMI) 33.3 ABG / Lab / Microbiology Data 02/23/25 05:40 Laboratory: Laboratory Results - last 24 hr 02/23/25 05:40: WBC 9.8, RBC 3.82 L, Hgb 11.6 L, Hct 34.0 L, MCV 89.0, MCH 30.4, MCHC 34.1, RDW Std Deviation 46.5 H, RDW Coeff of Mayra 14.6, Plt Count 138 L, MPV 10.6, Immature Gran % (Auto) 1.100 H, Neut % (Auto) 55.3, Lymph % (Auto) 33.9, [place] % (Auto) 6.0, Eos % (Auto) 3.1, Baso % (Auto) 0.6, Absolute Neuts (auto) 5.4, Absolute Lymphs (auto) 3.33, Nucleated RBC % 0 D/C Instructions Discharge Diet: No restrictions Discharge Activity: Return to Normal Activity, No Restrictions, May Drive, May Shower and May Take a Tub Bath (Warm water only. No bath salts, soaps, bubbles) May resume sexual activity in: 6-8 weeks Weight Bearing Status: Weight bearing as tolerated Call your doctor if you observe: Fever of 101 or Higher, Inability to urinate, Using more than 1 pad per hour, Shortness of breath, Dizziness, Chest pain, Calf discomfort and Uncontrolled pain DC O2, CPAP, BIPAP Needs Home O2 Discharge instructions: No Please Follow Up With: [facility] Abner SAPP When: 2 weeks in office or virtual Meaningful Use Info Meaningful Use Meaningful Use Diagnoses (Choose all that apply): None applicable Ischemic Stroke Statin Dosing Therapy Reference: STATIN DOSE THERAPY REFERENCE: * Patients > 75 years receive moderate or high dose statin therapy. * Patients 75 years or YOUNGER should receive HIGH intensity statin dose unless contraindicated. You will be required to document reason for non-treatment if statin daily dose does not meet guidelines. HIGH DOSE STATIN THERAPY DAILY Atorvastatin > than or = to 40 mg Rosuvastatin > than or = to 20 mg Amlodipine + Atorvastatin > than or = to 2.5/40 mg Ezetimibe + Simvastatin 10/80 mg Simvastatin 80mg Discharge Plan Admission Admit Date/Time: 02/22/25 00:47 Primary Reason for Your Visit: Labor and Delivery Attending Provider: Rona Neal Primary Care Provider: Care Physician,No Primary Discharge Orders/Prescriptions Prescriptions: New acetaminophen 500 mg Tablet 1,000 mg PO Q6H PRN PRN (Reason: Pain 1-10 Or Fever) Qty: 0 0RF naproxen 500 mg Tablet 500 mg PO Q8H PRN PRN (Reason: Pain Score 1-10) Qty: 0 0RF Continued PNV cmb#95-ferrous fumarate-FA [] 28 mg iron- 800 mcg tablet 1 tab PO DAILY Discontinued aspirin 81 mg capsule 81 mg PO DAILY No Action + Iron 1 tab 1 tab DAILY docusate sodium [Colace] 100 mg capsule 100 mg PO DAILY omeprazole 10 mg capsule,delayed release(DR/EC) 10 mg PO DAILY Referrals / Follow Up: Rona Neal CNM [Med Staff - Adv Practice Prof] - Care Physician,No Primary [Primary Care Provider] - Disposition Disposition (needs filled in before D/C Order can be placed): Home, Self Care
[2025-02-23 08:00] VITALS: BP 110/75; PULSE 77; RESP 16; TEMP 36.3
--- NOTE | 2025-02-28 15:40 | NURSING ---
Here for consult, follow up phone call questions asked. Doing well denies any headaches, visual changes, or baby blues. Bleeding is minimal. Patient denies any questions or concerns at this time.
== END 2025-02-23 15:30 | disposition home or self-care (01) | DRG 560 ==
LOC: WPOUT 00:48 → WP 00:48
PROVIDERS: Admitting Provider Advanced Practice Midwife; Visit Provider Advanced Practice Midwife
DX: O99.12 Other diseases of the blood and blood-forming organs and certain disorders involving the immune mechanism complicating childbirth (principal); Z37.0 Single live birth; D69.59 Other secondary thrombocytopenia; O62.3 Precipitate labor; O70.0 First degree perineal laceration during delivery; Z3A.39 39 weeks gestation of pregnancy; Z79.82 Long term (current) use of aspirin; Z87.891 Personal history of nicotine dependence
CPT/HCPCS: 59025; 59050; 85025; 86780; 86850; 86900; 86901; 99221; G0378

== ENCOUNTER 2025-02-28 14:52 | Outpatient (CLI) | payer MEDICAID, SELFPAY ==
[2025-02-28 15:15] VITALS: BMI 30.9
[2025-02-28 15:16] VITALS: BP 115/65; PULSE 81; RESP 16; TEMP 36.3
[2025-02-28 15:17] VITALS: PULSE 78; O2SAT 97
[2025-02-28 15:31] VITALS: BP 125/61; PULSE 75
[2025-02-28 15:33] LABS: Hematocrit 41.3 % (37-47); Hemoglobin 14.1 g/dL (12.0-15.0); Mean Corp Hgb Conc 34.1 g/dL (32-36); Mean Corpuscular Hgb 30.1 pg (27.0-32.0); Mean Corpuscular Volume 88.2 fL (81-99); Mean Platelet Vol. 9.7 fl (6.2-12.0); Platelet Count 183 K/mm3 (150-450); RBC Distribution Width CV 14.3 % (11.6-14.6); RBC Distribution Width SD 45.9 fl (35.1-43.9); Red Blood Count 4.68 M/mm3 (4.2-5.4); White Blood Count 8.8 K/mm3 (4.4-11.0)
[2025-02-28] MEDS: Acetaminophen 500 MG Tablet 1000 MG PO (15:43)
[2025-02-28 15:48] VITALS: BP 112/63; PULSE 70
--- NOTE | 2025-02-28 15:50 | NURSING ---
pt in room nursing baby at this time. continues to have c/o head hurting. Dr Smith aware. Tylenol given
[2025-02-28 16:00] LABS: AST(SGOT) 32 U/L (<=31); Alanine Aminotransfer ALT/SGPT 35 U/L (<=34); EST Glomerular Filtration Rate 116 (>60); Estimated Creatinine Clearance 147.92 ml/min (50-250); Uric Acid 5.9 mg/dL (2.6-6.0)
[2025-02-28 16:01] VITALS: BP 136/86; PULSE 67
--- NOTE | 2025-03-02 05:58 | OB.TRI.NOTE ---
HPI - General General Date of Admission: 02/28/25 Date of Service: 02/28/25 Chief Complaint: elevated BP HPI Narrative ZAKIYA WHELAN, is a 39 F who presents with PURCELL and elevated BP in the ED. on 02/22/25 BPs on L&D were within normal. [facility] labs normal. Maternal Data Information DWIGHT Calculator Estimated Delivery Date Method Current WG Current Estimate 02/26/25 Manual 40w 4d PFSH PFSH Medical History (Updated 03/02/25 @ 06:[address] Yvonne Smith MD) Vaginal laceration Labial abrasion, delivered, current hospitalization (spontaneous vaginal delivery) Late care affecting AMA (advanced maternal age) primigravida 35+ Home Medications ?Medication ?Instructions ?Recorded ?Last Taken ?Type + Iron 1 tab PO DAILY 01/05/23 02/27/25 11:00 History 1 tab omeprazole 10 mg capsule,delayed 10 mg PO DAILY 01/25/25 02/27/25 11:00 History release 10 mg Allergy/AdvReac Type Severity Reaction Status Date / Time latex Allergy Intermediate Hives Verified 02/28/25 15:13 Latex, Natural Rubber Allergy Rash Verified 02/28/25 15:13 Surgical History (Updated 02/25/25 @ 16:41 by Maru Vaughn) History of surgery History of surgery History of surgery Social History (System 02/25/25 @ 12:36 by Jaclyn Jensen) Smoking Status: Former smoker History Elective abortions Hx Para 1 Spontaneous abortions Hx # Term Pregnancies Ectopic pregnancies Hx # Pregnancies Multiple births # of living children Assessment & Plan (1) headache: PLAN: [facility] labs normal
== END 2025-02-28 16:14 | disposition home or self-care (01) ==
LOC: WPOUT 15:00 → WP 15:01
PROVIDERS: Visit Provider Obstetrics & Gynecology
DX: O99.893 Other specified diseases and conditions complicating puerperium (principal); R51.9 Headache, unspecified; Z87.891 Personal history of nicotine dependence
CPT/HCPCS: 36415; 99221; G0378